=== PATIENT | male | born 2000 | race African-American/Black ===

== ENCOUNTER 2024-08-01 14:17 | Emergency (ER) | payer OTHER, SELFPAY ==
[2024-08-01 14:19] VITALS: BP 150/84
[2024-08-01 14:59] VITALS: BMI 19.5
--- NOTE | 2024-08-01 15:05 | ED.GENMED ---
History of Present Illness
General
Chief Complaint: Headache
Source: patient and significant other
Exam Limitations: none
Time Seen by Provider: 08/01/24 14:57
Nursing documentation reviewed up to this point in time: agreed with
History of Present Illness
History of Present Illness:
23-year-old male in clinic complaining of ongoing headache, but worse today. He has had these headaches for the past 2 years, and has seen a physician at [facility] in the past. He has not yet seen a neurologist, but is on a waiting list to see a
neurologist at [facility]. He did not take any medications for this.
Past History
Past History
ED Past Medical History: Other (Headaches)
ED Past Surgical History: None
Social History
Tobacco: Vaping
Alcohol: None
Drug: Marijuana
Personal: Partner
Living: with family
Employment: Employed
Review of Systems
Review of Systems
Allergies reviewed?: Yes
All Other Systems: Not applicable
Constitutional: Reports no symptoms
EENT: Reports no symptoms
Respiratory: Reports no symptoms
ABD/GI: Reports no symptoms
: Reports no symptoms
Musculoskeletal: Reports no symptoms
Skin: Reports no symptoms
Neurological: Reports headache
Endocrine: Reports no symptoms
Hematologic/Lymphatic: Reports no symptoms
Psychiatric: Reports no symptoms
Phy Exam
Physical Exam
Physical Exam:
Physical Exam
General: no apparent distress, not acutely ill
Neck: supple. no meningeal signs. normal posterior pharynx
Heart: s1/s2 regular rate and rhythm, no murmur. equal radial
pulses.
HEENT: Pupils equal round reactive to light, EOMI
Lungs: no acute respiratory distress. clear bilaterally
Abdomen: normal bowel sounds. not tender. no CVAT
Neuro: alert and oriented. no focal neurological deficits cranial nerves II through XII intact
Skin: no rash
Psychiatric: well kept. interactive and cooperative
Extremities: no edema. no calf tenderness. negative homans. good distal pulses
Course
Vital Signs
Initial and Last Documented VS:
Initial Vital Signs
Temp Pulse Resp BP Pulse Ox
98.2 F 50 16 150/84 98
08/01/24 14:19 08/01/24 14:19 08/01/24 14:08/01/24 14:19 08/01/24 14:19
Last Documented Vital Signs
Temp Pulse Resp BP Pulse Ox
98.2 F 50 16 150/84 98
08/01/24 14:19 08/01/24 14:19 08/01/24 14:08/01/24 14:08/01/24 14:19
MDM/Problems Addressed
Differential Diagnosis Includes:
Migraine, tension headache
MDM/Problems Addressed:
23-year-old male with likely migraine headache. Now resolved.
*Pulse Oximetry
Patient hypoxic: no
*Critical Care Note
Total Time (30-74mins, 75-104mins- exclusive of procedures): Not Applicable
Data Reviewed
Source: patient (Patient states he had a CT scan of his head in the past that was normal)
Patient Management
Social determinants of health affecting care: Living situation and Substance abuse (Marijuana tobacco)
Escalation/DeEscalation of care consider admission/obs:
Admit not indicated
ED Attending Note
-
Portions of this chart may have been created with voice recognition software.� Occasional wrong word or��sound alike� substitutions may have occurred due to the inherent limitations of voice recognition software.
Discharge Plan
Departure
Patient Disposition: Home (Routine Discharge)
Date of Disposition: 08/01/24
Time of Disposition: 15:08
Patient with high blood pressure during this ER visit?: Yes
Condition: Good
Discharge Problem:
Headache
Instructions: Headache, Adult (DC), BLOOD PRESSURE
Prescriptions:
New
rizatriptan 10 mg tablet,disintegrating
10 mg PO ONCE PRN (Reason: migraine headache) Qty: 10 0RF
Rx Instructions:
may repeat 1 hour if headache not relieved, maximum 3 tabs per day
Activity Restrictions/Additional Instructions:
Follow up with neurology and primary care in 1-2 weeks
Interventions
Interventions:
*Risk Screen - Suicide Last Done: 08/01/24 14:19
*General Assessment Last Done: 08/01/24 15:00
*Neglect/Abuse Screening Last Done: 08/01/24 14:19
ED- Fall Risk Assessment Last Done: 08/01/24 15:03
*ED COVID-19 Vaccine History Last Done: 08/01/24 15:00
ED- Neurological Assessment Last Done: 08/01/24 15:02
Discharge Date and Time
Print Language: PASHTO
[2024-08-01 15:22] VITALS: BP 105/61
== END 2024-08-01 15:35 | disposition home or self-care (01) ==
LOC: EMR 14:17
PROVIDERS: EMERGENCY PHYSICIAN Emergency Medicine; FAMILY PHYSICIAN Internal Medicine
DX: R51.9 Headache, unspecified (principal); F17.290 Nicotine dependence, other tobacco product, uncomplicated; F12.90 Cannabis use, unspecified, uncomplicated
CPT/HCPCS: 99283

== ENCOUNTER 2024-08-02 18:21 | Emergency (ER) | payer SELFPAY ==
[2024-08-02 18:25] VITALS: BP 122/83
[2024-08-02] MEDS: BENADRYL 25 MG IV (19:21)
[2024-08-02] MEDS: REGLAN 5 MG IV (19:22)
[2024-08-02] MEDS: TORADOL 30 MG IV (19:22)
[2024-08-02] MEDS: NSS 1000 IV (19:24)
--- NOTE | 2024-08-02 20:35 | ED.GENMED ---
History of Present Illness
General
Chief Complaint: Headache
Time Seen by Provider: 08/02/24 18:52
History of Present Illness
History of Present Illness:
24-year-old male with history of migraines presenting to the emergency department for left-sided headache and migraine. Patient reports symptoms started a few hours prior to arrival. Patient notes he has been having migraines for the past 2 years.
He has not yet seen neurology. However, has been in and out of the emergency department and reports normal head imaging in the past. Denies any visual changes. Denies any weakness or numbness to his extremities. Denies any fever. Denies chest
pain or difficulty breathing. Headache appears consistent with his typical migraine. Denies any recent trauma. Does report family history of cluster headaches. No additional symptoms reported at this time
Past History
Past History
ED Past Medical History: Other (Headaches)
ED Past Surgical History: None
Social History
Tobacco: Vaping
Alcohol: None
Drug: Marijuana
Personal: Partner
Living: with family
Employment: Employed
Phy Exam
Physical Exam
Physical Exam:
General: Well-appearing, no clinical signs of dehydration, nontoxic and in no acute distress
HEENT: protecting airway, pupils equal and reactive
Neck: appears supple
CV: Normal heart rate, regular rhythm
Resp: No accessory muscle use, no increased work of breathing, lungs clear to auscultation bilaterally
Abd: No distention
Extremities: No deformities, no swelling, no erythema, pulses and sensation intact
Neuro: alert, no focal neurologic deficit
: deferred
Rectal: deferred
Psych: Normal affect
Skin: Intact
Course
Orders/Labs/Results
Orders:
Orders
08/02/24 19:14
0.9% Sodium Chloride 1000 ml [Nss] 1,000 ml IV BOLUS
Diphenhydramine [Benadryl] 25 mg IV NOW STA
Ketorolac [Toradol] 30 mg IV NOW STA
Metoclopramide [Reglan] 5 mg IV NOW STA
Vital Signs
Initial and Last Documented VS:
Initial Vital Signs
Temp Pulse Resp BP Pulse Ox
98.8 F 58 17 122/83 99
08/02/24 18:25 08/02/24 18:25 08/02/24 18:25 08/02/24 18:25 08/02/24 18:25
Last Documented Vital Signs
Temp Pulse Resp BP Pulse Ox
98.8 F 60 16 122/83 98
08/02/24 18:25 08/02/24 20:00 08/02/24 20:00 08/02/24 18:25 08/02/24 20:00
MDM/Problems Addressed
MDM/Problems Addressed:
24-year-old male with history of migraines presenting for left-sided migraine presenting for left-sided headache. Vital signs are normal.
On exam patient is well-appearing, no acute distress or discomfort. Symptom presentation and physical exam appears consistent with tension versus migrainous headache. Unremarkable neurologic exam with lower suspicion for central neurologic
process. Patient afebrile, no meds with lower suspicion for systemic process such as meningitis. No report of trauma or injury, without concern for acute traumatic head injury. Blood pressure within normal limits without concern for pseudotumor
cerebri. Will treat patient with migraine cocktail and reassess for improvement.
20:45 - Patient is reporting symptom improvement. At this time for discharge. Will provide information for neurology. Patient reports increased frequency of headaches. Will admit Decadron to help with rebound. Return precautions discussed and
patient verbalized understanding
*Critical Care Note
Total Time (30-74mins, 75-104mins- exclusive of procedures): Not Applicable
ED Attending Note
-
Portions of this chart may have been created with voice recognition software.� Occasional wrong word or��sound alike� substitutions may have occurred due to the inherent limitations of voice recognition software.
Discharge Plan
Departure
Prescriptions:
No Action
rizatriptan 10 mg tablet,disintegrating
10 mg PO ONCE PRN (Reason: migraine headache) Qty: 10 0RF
Rx Instructions:
may repeat 1 hour if headache not relieved, maximum 3 tabs per day
Referrals:
UNKNOWN - PT DOES,NOT KNOW [Family Provider] -
Interventions
Interventions:
*Risk Screen - Suicide Last Done: 08/02/24 18:24
*General Assessment Last Done: 08/02/24 18:24
*Neglect/Abuse Screening Last Done: 08/02/24 18:24
*ED COVID-19 Vaccine History Last Done: 08/02/24 18:24
ED- Neurological Assessment Last Done: 08/02/24 19:40
Discharge Date and Time
Print Language: SENEGALESE
[2024-08-02] MEDS: DECADRON 10 MG IV (21:11)
== END 2024-08-02 21:21 | disposition home or self-care (01) ==
LOC: EMR 18:21
PROVIDERS: EMERGENCY PHYSICIAN Student in an Organized Health Care Education/Training Program
DX: G43.909 Migraine, unspecified, not intractable, without status migrainosus (principal); F17.290 Nicotine dependence, other tobacco product, uncomplicated
CPT/HCPCS: 99284; 96374; 96375 ×3; 96361